=== PATIENT | male | born 1950 | race Hispanic/Latino ===

== ENCOUNTER 2017-10-10 11:21 | Inpatient (IN) | payer MEDICARE, BC ==
[2017-10-10 11:43] VITALS: BMI 27.7
[2017-10-10 12:13] LABS: BASO # 0.03 K/mm3 (0.0-2.0); BASO % 0.4 % (0.0-3.0); EOS # 0.4 (0.0-0.7); EOS % 4.9 % (1.5-5.0); GRAN # 3.74 (1.4-6.5); GRAN % 51.5 % (50.0-68.0); HEMOGLOBIN 15.3 g/dL (14.0-18.0); LYMPH # 2.6 (1.2-3.4); MEAN CELL VOLUME 94.3 fl (80.0-105.0); MEAN CORPUSCULAR HEMOGLOBIN 31.4 pg (25.0-35.0); MEAN CORPUSCULAR HGB CONC 33.3 g/dl (31.0-37.0); MEAN PLATELET VOLUME 10.5 fl (7.0-11.0); MONO # 0.6 (0.1-0.6); MONO % 8.2 % (1.0-6.0); RBC 4.88 10^6/uL (3.5-6.1); WHITE BLOOD COUNT 7.3 10^3/ul (4.5-11.0)
[2017-10-10 12:28] LABS: ALB/GLOB RATIO 1.4 (1.1-1.8); ALBUMIN 4.2 g/dL (3.0-4.8); ALT/SGPT 57 U/L (7-56); AST/SGOT 34 U/L (17-59); BLOOD UREA NITROGEN 12 mg/dL (7-21); CALCIUM 9.5 mg/dL (8.4-10.5); GFR AFRICAN-AMERICAN > 60; GFR NON-AFRICAN AMERICAN > 60
[2017-10-10 12:32] LABS: INR 1.09 (0.93-1.08); PARTIAL THROMBOPLASTIN TIME 29.1 Seconds (25.1-36.5); PROTHROMBIN TIME 12.6 SECONDS (9.4-12.5)
[2017-10-10 12:40] LABS: TROPONIN I 0.04 ng/mL
--- NOTE | 2017-10-10 13:15 | RAD ---
HISTORY: chest pain COMPARISON: No prior. FINDINGS: LUNGS: No active pulmonary disease. PLEURA: No significant pleural effusion identified, no pneumothorax apparent. CARDIOVASCULAR: Normal. OSSEOUS STRUCTURES: No significant abnormalities. VISUALIZED UPPER ABDOMEN: Normal. OTHER FINDINGS: None. IMPRESSION: No active disease.
--- NOTE | 2017-10-10 14:12 | ED PDOC ---
Arrival/HPI - General Chief Complaint: Chest Pain Time Seen by Provider: 10/10/17 11:25 Historian: Patient - History of Present Illness Narrative History of Present Illness (Text): 10/10/17 11:30 Yusuf Woo is a 67 year old male, whose past medical history includes cardiac stents, who presents to the emergency department complaining of worsening exertional chest pain for the past 2 weeks. In emergency department, patient has no chest pain. Patient states that his last cardiac workup was five months ago. Patient denies any chest pain, shortness of breath, fever, cough, or any other complaints at this time. Time/Duration: < month (2 weeks) Symptom Onset: Gradual Symptom Course: Worsening Activities at Onset: Light Context: Home Past Medical History - Provider Review Nursing Documentation Reviewed: Yes - Cardiac Hx Hypertension: Yes - Endocrine/Metabolic Hx Diabetes Mellitus Type 2: Yes - Psychiatric Hx Substance Use: No - Surgical History Hx Coronary Stent: Yes Other/Comment: left thumb surgery Family/Social History - Physician Review Nursing Documentation Reviewed: Yes Family/Social History: No Known Family HX Smoking Status: Never Smoked Hx Alcohol Use: No Hx Substance Use: No Allergies/Home Meds Allergies/Adverse Reactions: Allergies iodine Adverse Reaction (Verified 10/10/17 11:42) ITCHING Home Medications: Home Meds Medication Instructions Recorded Confirmed Atorvastatin [Lipitor] 40 mg PO DAILY 02/19/15 10/10/17 Clopidogrel [Plavix] 75 mg PO DAILY 02/19/15 10/10/17 Ezetimibe [Zetia] 10 mg PO DAILY 02/19/15 10/10/17 Glimepiride [amaRYL] 2 mg PO DAILY 02/19/15 10/10/17 Multivit,Iron,Min 5/Folic Acid 1 tab PO DAILY 02/19/15 10/10/17 [Strovite Forte] Alogliptin Benzoate [Nesina] 25 mg PO DAILY 10/10/17 10/10/17 Aspirin [[place] Aspirin] 81 mg PO DAILY 10/10/17 10/10/17 Metformin HCl [Glucophage] 500 mg PO DAILY 10/10/17 10/10/17 Metoprolol Tartrate [Lopressor] 100 mg PO DAILY 10/10/17 10/10/17 Review of Systems - Physician Review All systems were reviewed & negative as marked: Yes - Review of Systems Constitutional: absent: Fevers, Night Sweats Eyes: absent: Vision Changes ENT: absent: Hearing Changes Respiratory: absent: SOB, Cough Cardiovascular: Chest Pain Gastrointestinal: absent: Abdominal Pain Genitourinary Male: absent: Dysuria, Frequency Musculoskeletal: absent: Arthralgias, Back Pain Skin: absent: Rash, Pruritis Neurological: absent: Headache, Dizziness Endocrine: absent: Diaphoresis Hemo/Lymphatic: absent: Adenopathy Psychiatric: absent: Anxiety, Depression Physical Exam Vital Signs Reviewed: Yes Vital Signs Temp Pulse Pulse Resp BP Pulse Ox 10/10/17 15:23 77 17 141/82 97 10/10/17 12:53 69 10/10/17 12:51 97.6 F 69 17 146/93 H 97 10/10/17 11:33 97.6 F 74 16 150/94 H 98 Temperature: Afebrile Blood Pressure: Hypertensive Pulse: Regular Respiratory Rate: Normal Pain Distress: None Mental Status: Positive for: Alert and Oriented X 3 - Systems Exam Head: Present: Atraumatic, Normocephalic Pupils: Present: PERRL Extroacular Muscles: Present: EOMI Conjunctiva: Present: Normal Mouth: Present: Moist Mucous Membranes Neck: Present: Normal Range of Motion Respiratory/Chest: Present: Clear to Auscultation, Good Air Exchange. No: Respiratory Distress, Accessory Muscle Use Cardiovascular: Present: Regular Rate and Rhythm, Normal S1, S2. No: Murmurs Abdomen: Present: Normal Bowel Sounds. No: Tenderness, Distention, Peritoneal Signs Back: Present: Normal Inspection Upper Extremity: Present: Normal Inspection. No: Cyanosis, Edema Lower Extremity: Present: Normal Inspection. No: Edema Neurological: Present: GCS=15, CN II-XII Intact, Speech Normal Skin: Present: Warm, Dry, Normal Color. No: Rashes Psychiatric: Present: Alert, Oriented x 3, Normal Insight, Normal Concentration Medical Decision Making ED Course and Treatment: 10/10/17 14:20 Impression: 67 year old male complaining of worsening exertional chest pain for the past 2 weeks. Plan: -- EKG -- Chest X-ray -- Labs -- Asprin -- Reassess and disposition Progress Notes: 10/10/17 14:[address] Morillo, who is aware and will catheterize patient tomorrow. Case discussed with PMD, who agrees to admit patient to telemetry. 10/10/17 14:26 Chest X-ray: Creator : Kwesi Suh MD FINDINGS: LUNGS:No active pulmonary disease. PLEURA:No significant pleural effusion identified, no pneumothorax apparent. CARDIOVASCULAR:Normal. OSSEOUS STRUCTURES:No significant abnormalities. VISUALIZED UPPER ABDOMEN:Normal. OTHER FINDINGS:None. IMPRESSION: No active disease. - Lab Interpretations Lab Results: 10/10/17 12:00 10/10/17 12:00 Lab Results 10/10/17 12:00: Sodium 142, Potassium 4.8, Chloride 103, Carbon Dioxide 27, Anion Gap 17, BUN 12, Creatinine 0.8, Est GFR ( Amer) > 60, Est GFR (Non- Af Amer) > 60, Random Glucose 184 H, Calcium 9.5, Magnesium 2.0, Total Bilirubin 0.8, AST 34, ALT 57 H, Alkaline Phosphatase 55, Lactate Dehydrogenase 504, Total Creatine Kinase 214, Troponin I 0.04, Total Protein 7.1, Albumin 4.2 , Globulin 2.9, Albumin/Globulin Ratio 1.4 10/10/17 12:00: PT 12.6 H, INR 1.09 H, APTT 29.1 10/10/17 12:00: WBC 7.3, RBC 4.88, Hgb 15.3, Hct 46.0, MCV 94.3, MCH 31.4, MCHC 33.3, RDW 13.0, Plt Count 149, MPV 10.5, Gran % 51.5, Lymph % (Auto) 35.0, Norton % (Auto) 8.2 H, Eos % (Auto) 4.9, Baso % (Auto) 0.4, Gran # 3.74, Lymph # 2.6, Norton # 0.6, Eos # 0.4, Baso # 0.03 I have reviewed the lab results: Yes - RAD Interpretation Radiology Orders: 10/10/17 11:47 CHEST PORTABLE [RAD] Stat - Medication Orders Current Medication Orders: Atorvastatin Calcium (Lipitor) 40 mg PO DAILY LUCIAN Clopidogrel Bisulfate (Plavix) 75 mg PO DAILY LUCIAN Ezetimibe (Zetia) 10 mg PO DAILY LUCIAN Glimepiride (Amaryl) 2 mg PO DAILY ULCIAN Insulin Human Regular (Humulin R Low) 0 units SC ACHS LUCIAN PRN Reason: Protocol Metformin HCl (Glucophage) 500 mg PO DAILY LUCIAN Metoprolol Tartrate (Lopressor) 100 mg PO BRK LUCIAN Discontinued Medications Aspirin (Aspirin) 325 mg PO STAT STA Stop: 10/10/17 11:47 Last Admin: 10/10/17 12:02 Dose: 325 mg Enoxaparin Sodium (Lovenox) 90 mg SC STAT STA PRN Reason: Protocol Stop: 10/10/17 16:44 Last Admin: 10/10/17 17:57 Dose: 90 mg Subcutaneous Administrations Document 10/10/17 17:57 MJO (Rec: 10/10/17 17:57 MJO [id number]) Injection Site MAR Injection Site Right Abdomen Charges for Administration # of Subcutaneous Administrations 1 Pneumococcal Polyvalent Vaccine (Pneumovax 23 Vaccine) 0.5 ml IM .ONCE ONE Stop: 10/10/17 18:37 - Scribe Statement The provider has reviewed the documentation as recorded by the Jobyibnikki Platt Provider Scribe Attestation: All medical record entries made by the Scribe were at my direction and personally dictated by me. I have reviewed the chart and agree that the record accurately reflects my personal performance of the history, physical exam, medical decision making, and the department course for this patient. I have also personally directed, reviewed, and agree with the discharge instructions and disposition. Disposition/Present on Arrival - Present on Arrival Any Indicators Present on Arrival: No History of DVT/PE: No History of Uncontrolled Diabetes: No Urinary Catheter: No History of Decub. Ulcer: No History Surgical Site Infection Following: None - Disposition Have Diagnosis and Disposition been Completed?: Yes Diagnosis: Chest pain Disposition: HOSPITALIZED Disposition Time: 12:50 Patient Plan: Admission Condition: GUARDED
[2017-10-10] MEDS ORDERED: Enoxaparin 100 mg Syringe SC STA (16:43)
[2017-10-10] MEDS ORDERED: Influenza Vaccine 60 mcg/0.5 mL SYR (4YR UP) IM ONE (18:36)
[2017-10-10] MEDS ORDERED: Pneumococcal 23-Valent Vaccine IM ONE (18:36)
--- NOTE | 2017-10-10 20:33 | CARD ---
APPROVED REPORT EKG Measurement Heart [id number] <Conclusion> Normal sinus rhythm Left anterior fascicular block Abnormal ECG
--- NOTE | 2017-10-10 21:47 | CON ---
DATE: 10/10/2017 LOCATION: Emergency Room. REASON FOR CONSULTATION: Coronary artery disease, having chest pain, history of diabetes mellitus, and high cholesterol. HISTORY OF PRESENT ILLNESS: The patient is a 67-year-old male known case of coronary artery disease, had multiple stents dating back to 2000, 2005, 2009, 2011, diabetes mellitus, high cholesterol, and had a negative stress test in 03/2017. Now since last two weeks, he is getting chest pain on exertion, relieved by rest and day-by-day, the pain severity is getting increased, so the patient came to Emergency Room and he has multiple chest pains this morning. PAST MEDICAL HISTORY: The patient has coronary artery disease, diabetes mellitus, high cholesterol, multiple stents dating back to 2000, 2005, 2009, and 2011. The patient also has a history of left thumb surgery. PERSONAL HISTORY: Never smoked. No drinking. No substance abuse. ALLERGIES: THE PATIENT STATES THAT HIS IODINE HE GETS ITCHING. LIST OF HOME MEDICATIONS: Aspirin 81 mg daily, Lipitor 40 daily, Plavix 75 daily, Zetia 10 daily, glimepiride 2 mg daily, metformin 500 mg daily, and metoprolol tartrate 100 mg p.o. daily. FAMILY HISTORY: Not significant. PHYSICAL EXAMINATION: VITAL SIGNS: Blood pressure 141/82, respirations 17, pulse 77, and temperature 97.6. HEENT: Head is normocephalic. Eyes: Pupils normal. Conjunctivae are normal. Nose and throat normal. NECK: JVP low. Carotids equal. THORAX: AP diameter normal. LUNGS: Clear. CARDIOVASCULAR: S1 and S2. ABDOMEN: Soft and no tenderness. No organomegaly. Bowel sounds are normal. EXTREMITIES: No clubbing. No cyanosis. LABORATORY DATA: WBC 7.3, hemoglobin 15.3, hematocrit 46.0, and platelets 149. Troponin 0.04. Sodium 142 potassium 4.8, BUN 12, and creatinine 0.8. Random sugar 149. Total protein and albumin normal. Prothrombin time 12.6. INR 1.09 and PTT 29.1. Chest x-ray is clear, no active disease. EKG showed regular sinus rhythm. DIAGNOSES: Chest pain, coronary artery disease, diabetes mellitus, and high cholesterol. PLAN: The patient symptoms of coronary artery disease is getting worse everyday, so we will arrange cardiac catheterization tomorrow morning. In the meantime, we will continue glimepiride 2 mg daily, metformin 500 mg p.o. daily, Lipitor 40 mg daily, metoprolol tartrate 100 mg p.o. daily, one stat dose of Lovenox 90 mg given, Plavix 75 daily, and Zetia 10 mg daily. We will check lipid panel in the morning along with TSH in the morning. We will follow with you. Emily Morillo MD
[2017-10-10] MEDS: Insulin Reg-LOW-Coverage SC SCH (23:37)
[2017-10-11 00:06] VITALS: O2SAT 98
[2017-10-11 06:12] LABS: BASO # 0.02 K/mm3 (0.0-2.0); BASO % 0.2 % (0.0-3.0); EOS # 0.4 (0.0-0.7); EOS % 5.2 % (1.5-5.0); GRAN # 3.63 (1.4-6.5); GRAN % 44.4 % (50.0-68.0); HEMOGLOBIN 14.4 g/dL (14.0-18.0); LYMPH # 3.4 (1.2-3.4); LYMPH % 41.8 % (22.0-35.0); MEAN CELL VOLUME 93.1 fl (80.0-105.0); MEAN CORPUSCULAR HEMOGLOBIN 30.2 pg (25.0-35.0); MEAN CORPUSCULAR HGB CONC 32.4 g/dl (31.0-37.0); MEAN PLATELET VOLUME 10.6 fl (7.0-11.0); MONO # 0.7 (0.1-0.6); MONO % 8.4 % (1.0-6.0); RBC 4.77 10^6/uL (3.5-6.1); RED CELL DISTRIBUTION WIDTH 13.1 % (11.5-14.5); WHITE BLOOD COUNT 8.2 10^3/ul (4.5-11.0)
[2017-10-11 06:30] LABS: ALB/GLOB RATIO 1.4 (1.1-1.8); ALBUMIN 3.8 g/dL (3.0-4.8); ALT/SGPT 49 U/L (7-56); AST/SGOT 37 U/L (17-59); BLOOD UREA NITROGEN 13 mg/dL (7-21); CALCIUM 9.2 mg/dL (8.4-10.5); GFR AFRICAN-AMERICAN > 60; GFR NON-AFRICAN AMERICAN > 60; HDL CHOLESTEROL 29 mg/dL (29-60)
[2017-10-11 06:41] LABS: LDL CHOLESTEROL 48 mg/dL (0-129)
[2017-10-11] MEDS: Insulin Reg-LOW-Coverage SC SCH ×2 (08:22→17:17)
[2017-10-11] MEDS ORDERED: DiphenhydrAMINE 50 mg/ml Inj ONE (09:17)
[2017-10-11] MEDS ORDERED: Famotidine 20mg/50ml 20 MG/50 ML BAG IVPB ONE (09:17)
[2017-10-11] MEDS ORDERED: HEPARIN SODIUM/NS 2,000 ML IV ONE (10:23)
[2017-10-11] MEDS ORDERED: Lidocaine 2% Inj (20ml) ONE (10:23)
[2017-10-11] MEDS ORDERED: Nitroglycerin 50mg in D5W 50 MG/250 ML BOTTLE IV ONE (10:45)
[2017-10-11] MEDS ORDERED: Iodixanol 320 MG/ML 200 ML BOTTLE IV ONE (10:51)
[2017-10-11] MEDS: Midazolam 2 MG/2 ML VIAL ONE ×2 (10:53→11:29)
[2017-10-11] MEDS ORDERED: Eptifibatide 20 mg/10mL Inj IVP ONE (11:06)
[2017-10-11] MEDS ORDERED: Iohexol 350mgl/ml 50 ML ONE (11:07)
[2017-10-11] MEDS ORDERED: Morphine 2 mg/ml ISec ONE ×2 (11:31→11:35)
[2017-10-11] MEDS ORDERED: Iodixanol 320 MG/ML 100 ML BOTTLE IV ONE (11:41)
[2017-10-11] MEDS ORDERED: Eptifibatide 0.75 mg/ml 75 MG/100 ML BOTTLE IV ONE (11:55)
[2017-10-11] MEDS ORDERED: HEPARIN SODIUM/NS 1,000 ML IV ONE (12:01)
[2017-10-11] MEDS ORDERED: Morphine 5 MG/ML SYRINGE ONE (12:07)
[2017-10-11] MEDS ORDERED: Morphine 2 mg/ml ISec IVP PRN (12:19)
[2017-10-11] MEDS: Eptifibatide 0.75 mg/ml 75 MG/100 ML BOTTLE IV SCH ×3 (12:45→23:51)
[2017-10-11] MEDS: Sodium Chloride 0.9% 1,000 ML IV SCH ×2 (12:46→17:18)
--- NOTE | 2017-10-11 13:44 | PN ---
DATE: REASON FOR CONSULTATION AND FOLLOWUP: Acute Coronary syndrome, unstable angina. The patient underwent cardiac catheterization that revealed in-stent restenosis, distal to the stent in LAD between the two stents high grade 90% stenosis. Two more stenoses are noted in the mid and distal circumflex. The operation underwent successfully. PTCA with drug-eluting in LAD and as well as in the circumflex. Postop procedure, still remains with some chest pain, but no ST-T wave segment elevation noted. The patient was started on Integrilin. Plan is to continue Integrilin for 18 hours. Further recommendation will depend on the hospital course. We will follow with you. Thank you for providing me the opportunity in taking care of the patient. Emily Salvador MD cc: TIERA
[2017-10-11 16:24] LABS: BLOOD UREA NITROGEN 14 mg/dL (7-21); GFR AFRICAN-AMERICAN > 60; GFR NON-AFRICAN AMERICAN > 60
[2017-10-11 17:37] LABS: BASO # 0.01 K/mm3 (0.0-2.0); BASO % 0.1 % (0.0-3.0); EOS % 0.1 % (1.5-5.0); GRAN # 9.07 (1.4-6.5); GRAN % 87.6 % (50.0-68.0); HEMOGLOBIN 15.4 g/dL (14.0-18.0); LYMPH # 0.8 (1.2-3.4); MEAN CELL VOLUME 92.1 fl (80.0-105.0); MEAN CORPUSCULAR HEMOGLOBIN 31.3 pg (25.0-35.0); MEAN PLATELET VOLUME 11.1 fl (7.0-11.0); MONO # 0.4 (0.1-0.6); MONO % 4.2 % (1.0-6.0); RBC 4.92 10^6/uL (3.5-6.1); RED CELL DISTRIBUTION WIDTH 13.1 % (11.5-14.5); WHITE BLOOD COUNT 10.4 10^3/ul (4.5-11.0)
[2017-10-11] MEDS ORDERED: Bacitracin 500 Units/gm Oint Foilpak UD ONE (19:33)
--- NOTE | 2017-10-11 21:54 | CARD ---
APPROVED REPORT EKG Measurement Heart [id number] <Conclusion> Normal sinus rhythm Possible Left atrial enlargement Left anterior fascicular block Prolonged QT Abnormal ECG
--- NOTE | 2017-10-12 00:25 | CARDCATH ---
PROCEDURE DATE: 10/11/2017 LEFT HEART CATH, POSSIBLE ANGIOPLASTY PROCEDURES PERFORMED: 1. Complete left heart catheterization. 2. Stenting of mid left anterior descending with drug eluting stent. 3. Stenting of mid circumflex. 4. Stenting of distal circumflex. 5. PRU test was done, found to be 102. It means the patient's platelet is normal functioning with Plavix. BRIEF CLINICAL HISTORY: This is a 67-year-old male with a past medical history significant for coronary artery disease, multiple stents, history goes back 2000, 2005, 2009 previous stent in LAD. Came in yesterday with one week history of bronchitis and then the patient developed chest pain on exertion. The patient underwent cardiac catheterization today. The patient was brought to the cardiac catheterization. PROCEDURE: Risks, benefits, and alternatives were explained to the patient and the patient went with a left radial approach. Left radial artery was punctured with Seldinger technique micropuncture and the radial sheath was applied and 2500 heparin, 200 mcg of verapamil and 200 mcg of nitroglycerin cocktail was given. Then, left and right Cheikh catheter and pigtail catheter used for coronary angiography. FINDINGS: As follows: Left main essentially without significant disease, bifurcating LAD, circumflex proximal stent noted one in the mid and another stent noted. In between 90% stenosis noted and in-stent restenosis noted. Circumflex is a dominant large caliber vessel, gives multiple OM1, OM2, OM3, and gives LPDA branch. Mid circumflex 90% stenosis, distal circumflex going to the LPDA has 90% stenosis noted. RCA is nondominant. RV branch 50% of stenosis noted. LV gram does show ejection fraction 55%. EDP was in the range of 18 to 20. In view of above, PTCA of LAD and circumflex contemplated. 2000 more heparin was given at interval, 1000 first and then another 1000 and then 500. Total 5000 heparin including the radial access. 5000 heparin was given. Two Integrilin boluses were given and then first EBU guider was taken to engage the coronaries, and first the LAD was handled. Lesion was crossed with loose wire and then multiple inflations were done with 2.0 balloon and 3.0 balloon and 3.25 and then drug-eluting stent 3.0 x 20 mm stent was taken and deployed in the LAD with reduction in stenosis from 90% to 0. Preprocedure 90% and postprocedure 0. PRIMITIVO-1 flow before procedure, PRIMITIVO-3 flow postprocedure. Then, the circumflex was handled and loose wire was put in the LPDA and a ChoICE PT in OM1 and then the final dilation was done with 2.5 x 15 balloon and then drug-eluting stent 2.75 x 21 mm length was taken, distal circumflex going to the LPDA at 14 atmospheres with reduction in stenosis from 90% to 0. Then, another stent 3.0 x 20 mm taken and put in the mid circumflex at 14 atmospheres with reduction in stenosis from 90% to 0. SUMMARY: The following procedures were done. 1. Complete left heart catheterization. 2. Stenting of LAD. Preprocedure 90%, postprocedure 0. Preprocedure PRIMITIVO flow 1, postprocedure PRIMITIVO flow 3. 3. Circumflex. Distal circumflex, PTCA with drug-eluting stent. Preprocedure 90% stenosis. Postprocedure 0 stenosis. Preprocedure PRIMITIVO flow 2, postprocedure PRIMITIVO flow 3. 4. PTCA with drug-eluting stent of the mid circumflex with stenosis. Preprocedure 90%, postprocedure 0. Preprocedure PRIMITIVO flow 2, postprocedure PRIMITIVO flow 3. PRU test was done with 102 seconds suggestive of Plavix is working. RECOMMENDATION: Continue Integrilin for 16 hours. Continue IV fluids. Continue aspirin, Plavix. We will follow with you. Thank you Dr. Camacho for providing us the opportunity in taking care of the patient. Emily Salvador MD TIERA
[2017-10-12 06:27] LABS: BASO # 0.02 K/mm3 (0.0-2.0); BASO % 0.1 % (0.0-3.0); EOS # 0.1 (0.0-0.7); EOS % 0.6 % (1.5-5.0); GRAN # 9.97 (1.4-6.5); GRAN % 72.4 % (50.0-68.0); HEMOGLOBIN 15.3 g/dL (14.0-18.0); LYMPH # 2.2 (1.2-3.4); MEAN CORPUSCULAR HEMOGLOBIN 30.8 pg (25.0-35.0); MEAN CORPUSCULAR HGB CONC 33.1 g/dl (31.0-37.0); MEAN PLATELET VOLUME 11.1 fl (7.0-11.0); MONO # 1.5 (0.1-0.6); MONO % 10.9 % (1.0-6.0); RBC 4.97 10^6/uL (3.5-6.1); RED CELL DISTRIBUTION WIDTH 13.4 % (11.5-14.5); WHITE BLOOD COUNT 13.8 10^3/ul (4.5-11.0)
[2017-10-12 06:56] LABS: ALB/GLOB RATIO 1.3 (1.1-1.8); ALT/SGPT 57 U/L (7-56); AST/SGOT 54 U/L (17-59); BLOOD UREA NITROGEN 15 mg/dL (7-21); CALCIUM 9.1 mg/dL (8.4-10.5); GFR AFRICAN-AMERICAN > 60; GFR NON-AFRICAN AMERICAN > 60
--- NOTE | 2017-10-12 07:08 | PN ---
DATE: 10/11/2017 SUBJECTIVE: The patient was seen this Tuesday in room 270, bed 1. His is at the bedside. He is status post cardiac catheterization earlier today. Ever since catheterization, he describes an achy type of chest pain. Cardiology is aware and feels this is related to the technical issues of the stretching of the artery and technical issues of the balloon angioplasty and stenting. A stat EKG was done, which was unremarkable and unchanged, and no acute changes. The patient was treated with NSAIDs and analgesics with significant relief. PHYSICAL EXAMINATION GENERAL: He is awake and alert. LUNGS: With good aeration, right and left. EXTREMITIES: Show no edema. IV access in the right and left arm looks good. IMPRESSION: Chest pain, coronary artery disease. PLAN: As outlined above, we will follow with Cardiology. Derek Mckeon MD
[2017-10-12] MEDS ORDERED: Potassium Chloride 20 mEq ER Tab PO ONE (07:38)
[2017-10-12] MEDS: Insulin Reg-LOW-Coverage SC SCH ×2 (08:26→12:50)
[2017-10-12 12:17] VITALS: BP 125/75; PULSE 82; RESP 20; TEMP 99.4
--- NOTE | 2017-10-12 14:14 | PN ---
DATE: 10/12/2017 REASON FOR CONSULTATION AND FOLLOWUP: Unstable angina, status post multivessel PTCA. SUBJECTIVE: No chest pain. No shortness of breath. No palpitation. OBJECTIVE/PHYSICAL EXAMINATION: As follows: VITAL SIGNS: Temperature is afebrile, heart rate is 103, and blood pressure is 131/73. HEENT: PERRLA, intact. NECK: No carotid bruits or thyromegaly. CHEST: Clear to auscultation. HEART: S1 and S2 regular. ABDOMEN: Soft. EXTREMITIES: Clubbing and cyanosis negative. LABORATORY DATA: Blood workup as follows: WBC 13.8, hemoglobin 15.0, hematocrit 46.2, and platelet count 159. Chemistry shows sodium of 140, potassium of 3.8, chloride of 100, carbon dioxide of 30, anion gap of 14, BUN of 15, and creatinine of 0.8. IMPRESSION: Unstable angina, status post multivessel angioplasty, stenting of mid left anterior descending artery in between the two stents placed in 09/20/2006 and in-stent stenosis of left anterior descending artery, high grade multiple stenosis and mid and distal percutaneous transluminal coronary angioplasty with drug-eluting stent. No chest pain, diabetes, hypertension, and hyperlipidemia. RECOMMENDATIONS: Continue aspirin and Plavix. Yesterday PRU level was done, which is to check the sensitivity of the Plavix that the patient is with the resistance or not. The patient is found to be normal functioning platelet with Plavix and not resistant to Plavix. PRU level was 102, so suggested to continue aspirin, continue Plavix, continue metformin, continue metoprolol, and morphine. We will give one dose of ibuprofen 600 mg and we will follow. Possibly discharge him today. We will supplement potassium and okay to be discharged once seen by Dr. Mckeon. Thank you Dr. Mckeon for providing us the opportunity in taking care of the patient, Ch[place]. Emily Salvador MD
== END 2017-10-12 14:34 | disposition home or self-care (01) | DRG 247 ==
LOC: ED 11:21 → ERH 13:57 → 2RSO 16:49
PROVIDERS: ADMIT Internal Medicine; ATTEND Internal Medicine
PROC: 027136Z Dilation of Coronary Artery, Two Arteries with Three Drug-eluting Intraluminal Devices, Percutaneous Approach (ICD-10-PCS; principal; 2017-10-11)
PROC: 4A023N7 Measurement of Cardiac Sampling and Pressure, Left Heart, Percutaneous Approach (ICD-10-PCS; 2017-10-11)
PROC: B2111ZZ Fluoroscopy of Multiple Coronary Arteries using Low Osmolar Contrast (ICD-10-PCS; 2017-10-11)
PROC: B2151ZZ Fluoroscopy of Left Heart using Low Osmolar Contrast (ICD-10-PCS; 2017-10-11)
PROC: 3E033PZ Introduction of Platelet Inhibitor into Peripheral Vein, Percutaneous Approach (ICD-10-PCS; 2017-10-11)
DX: I25.110 Atherosclerotic heart disease of native coronary artery with unstable angina pectoris (principal); T82.855A Stenosis of coronary artery stent, initial encounter; I24.9 Acute ischemic heart disease, unspecified; E11.9 Type 2 diabetes mellitus without complications; E78.00 Pure hypercholesterolemia, unspecified; I10 Essential (primary) hypertension; Y83.1 Surgical operation with implant of artificial internal device as the cause of abnormal reaction of the patient, or of later complication, without mention of misadventure at the time of the procedure; Z79.02 Long term (current) use of antithrombotics/antiplatelets; Z79.82 Long term (current) use of aspirin; Z79.899 Other long term (current) drug therapy; E78.5 Hyperlipidemia, unspecified